=== PATIENT | male | born 1990 | race Caucasian/White ===

== ENCOUNTER 2019-03-21 23:30 | Emergency (ER) | payer BC ==
[2019-03-22] MEDS ORDERED: PROVENTIL 2.5 MG/3 ML NEB IH ONE ×2 (00:29→00:36)
--- NOTE | 2019-03-22 00:38 | ERPHSYRPT ---
- History of Present Illness Time Seen by Provider: 03/21/19 23:50 Source: patient Exam Limitations: no limitations Patient Subjective Stated Complaint: pt states he has been coughing for a week and has had generalized aches and pain. Triage Nursing Assessment: pt alert and oriented, answers questions approp. pt ambulatoryw ith steady gait noted. respirations nonlabored with lungs exp wheeze noted to lt upper lobe. skin pink warm and dry. occasional cough noted. Physician History: Patient has had a cough for 10 days. Nasal and sinus congestion with post- nasal drainage for the past 5 days. Timing/Duration: day(s) (10) Cough Quality/Degree: moderate, dry cough Possible Cause: no prior episodes Modifying Factors: Improves With: nothing Associated Symptoms: cough, muscle aches, nasal congestion, nasal drainage, sinus infection, wheezing, No fever, No chills, No chest pain/soreness, No dizziness, No earache, No facial pain, No headache, No lightheadedness, No shortness of breath, No sore throat International travel in last 2 weeks: No Allergies/Adverse Reactions: Sulfa (Sulfonamide Antibiotics) Allergy (Verified 03/22/19 00:06) Hx Tetanus, Diphtheria Vaccination/Date Given: Yes Hx Influenza Vaccination/Date Given: No Hx Pneumococcal Vaccination/Date Given: No Immunizations Up to Date: Yes - Review of Systems Constitutional: No Fever, No Chills Eyes: No Symptoms Ears, Nose, & Throat: Nose Congestion, Nose Discharge, No Ear Pain, No Ear Discharge, No Mouth Pain, No Throat Pain, No Hoarse, No Painful Swallowing Respiratory: Cough, No Dyspnea Cardiac: No Chest Pain, No Edema, No Syncope Abdominal/Gastrointestinal: No Abdominal Pain, No Nausea, No Vomiting, No Diarrhea Genitourinary Symptoms: No Dysuria, No Hematuria, No Flank Pain Musculoskeletal: Myalgias, No Back Pain, No Neck Pain Skin: No Rash Neurological: No Dizziness, No Focal Weakness, No Headache, No Lethargy, No Paralysis, No Parasthesia, No Sensory Changes Psychological: No Symptoms Endocrine: No Excessive Sweating Hematologic/Lymphatic: No Easy Bleeding, No Easy Bruising All Other Systems: Reviewed and Negative - Past Medical History Pertinent Past Medical History: No Other Medical History: scoliosis - Past Surgical History Past Surgical History: Yes Other Surgical History: tubes in ears - Social History Smoking Status: Former smoker Exposure to second hand smoke: No Drug Use: none Patient Lives Alone: No - Nursing Vital Signs Nursing Vital Signs: Initial Vital Signs Temperature 97.9 F 03/21/19 23:56 Pulse Rate 94 H 03/21/19 23:56 Respiratory Rate 16 03/21/19 23:56 Blood Pressure 122/83 03/21/19 23:56 O2 Sat by Pulse Oximetry 99 03/21/19 23:56 Pain Scale Pain Intensity 4 - Physical Exam General Appearance: no apparent distress, alert Eye Exam: PERRL/EOMI, eyes nml inspection Ears, Nose, Throat Exam: normal ENT inspection, TMs normal, pharynx normal, moist mucous membranes Neck Exam: normal inspection, non-tender, supple, full range of motion, No meningismus, No Brudzinski, No Kernig's Respiratory Exam: normal breath sounds, lungs clear, airway intact, No respiratory distress, No diminished breath sounds, No prolonged expirations, No crackles/rales, No rhonchi, No stridor Cardiovascular Exam: regular rate/rhythm, normal heart sounds, normal peripheral pulses, capillary refill <2 sec Gastrointestinal/Abdomen Exam: soft, normal bowel sounds, No tenderness, No mass , No guarding, No rebound Back Exam: normal inspection, normal range of motion, No CVA tenderness, No vertebral tenderness Extremity Exam: normal inspection, normal range of motion, pelvis stable Neurologic Exam: alert, oriented x 3, cooperative, ticket collector II-XII nml as tested, normal mood/affect, sensation nml, No motor deficits, No uncooperative Skin Exam: normal color, warm, dry, No rash, No petechiae, No jaundice, No cyanosis Lymphatic Exam: No adenopathy SpO2 Interpretation: normal SpO2: 99 O2 Delivery: Room Air - Course Nursing assessment & vital signs reviewed: Yes - Radiology Exams Chest X-ray Interpretation: Interpreted by me, Reviewed by me, No Pneumonia, No Pneumothorax, No Infiltrates, Nml Mediastinum, Other (dextroscoliosis) Ordered Tests: Active Orders 24 hr Category Date Time Status CHEST 1 VIEW (PORTABLE) Stat Exams 03/22/19 00:13 Taken Respiratory Therapy Assessment DAILY RT 03/22/19 00:39 Completed Medication Summary Discontinued Medications Generic Name Dose Route Start Last Admin Trade Name Freq PRN Reason Stop Dose Admin Albuterol Sulfate 2.5 mg 03/22/19 00:29 03/22/19 00:40 Proventil 2.5 Mg/3 Ml Neb IH 03/22/19 00:30 2.5 mg STAT ONE Administration Albuterol Sulfate Confirm 03/22/19 00:36 Proventil 2.5 Mg/3 Ml Neb Administered 03/22/19 00:37 Dose 2.5 mg IH .STK-MED ONE - Progress Progress: improved, re-examined Air Movement: good Progress Note: 03/22/19 01:00 Patient is clear to auscultation with no rales, crackles, rhonchi or wheezing. Patient subjectively feels better after the treatment. No respiratory distress , no hypoxia, no accessory muscle use. Blood Culture(s) Obtained: No Antibiotics given: No Counseled pt/family regarding: diagnosis, need for follow-up, rad results - Departure Departure Disposition: Home Clinical Impression: Acute non-recurrent pansinusitis, Elevated blood pressure reading without diagnosis of hypertension Acute bronchitis Qualifiers: Bronchitis organism: unspecified organism Qualified Code(s): J20.9 - Acute bronchitis, unspecified Condition: Good Critical Care Time: No Referrals: STEPHANY HEARD [Primary Care Provider] - Follow Up with PCP/3 days Instructions: Acute Bronchitis, Adult (DC), Cough, Adult (DC) Additional Instructions: Discharge/Care Plan YANNJUN Lopez was seen on 03/22/19 in the Emergency Room. The patient was counseled regarding Diagnosis, Imaging studies, and need for follow up and when to return to the Emergency Room. Your chest x-ray was read as negative by the emergency department physician, and we'll notify you in the morning of 2018 if the radiologists interpretation is different in regard to changing your course of therapy. Prescriptions given: ProAir inhaler every 4 hours as needed, Phenergan DM Q6 hours prn for cough; Atrovent nasal spray TID prn; Sudafed 120mg Q12 hours prn Discharge Note I have spoken with the patient. I have explained the patient's condition, diagnosis and treatment plan based on the information available to me at this time. I have answered the patient's questions and addressed any concerns. The patient has a good understanding of the patient's diagnosis, condition and treatment plan as can be expected at this point. The vital signs have been stable. The patient's condition is stable and appropriate for discharge from the emergency department. The patient will pursue further outpatient evaluation with the primary care physician or other designated or consulting physician as outlined in the discharge instructions. The patient is agreeable to this plan of care and follow -up instructions have been explained in detail. The patient has received these instruction. The patient is aware that any significant change in condition or worsening of symptoms should prompt an immediate return to this or the closest emergency department or call 911. Prescriptions: Albuterol Sulfate [Proair Hfa] 8.5 gm IH Q4H PRN PRN #1 [id number] PRN Reason: Wheezing/Chest Congestion Ipratropium [place] 2 spray NS Q8H PRN PRN #1 spray PRN Reason: Nasal Congestion/Rhinorrhea Promethazine/Dextromethorphan [Promethazine-Dm Solution] 5 ml PO Q6-8HPRN PRN # 90 ml PRN Reason: Cough Pseudoephedrine HCl [Sudafed 12 Hour] 120 mg PO BID #20 tablet.er
[2019-03-22 01:27] VITALS: BP 121/78; PULSE 107; O2SAT 98
--- NOTE | 2019-03-22 09:13 | XRAY ---
Indication: Cough. Comparison: None Portable chest demonstrates normal heart and lungs. Bony thorax intact with significant double curvature scoliosis.
== END 2019-03-22 01:33 | disposition home or self-care (01) ==
LOC: ED 23:30
DX: J01.41 Acute recurrent pansinusitis (principal); J20.9 Acute bronchitis, unspecified
CPT/HCPCS: 71045; 94640; 99283; J7609; A9270-GY